=== PATIENT | male | born 2000 | race Caucasian/White ===

== ENCOUNTER 2022-11-24 09:46 | Emergency (ER) | payer MEDICAID, SELFPAY ==
[2022-11-24 09:59] VITALS: BP 126/82; PULSE 70; RESP 18; TEMP 36.1; O2SAT 100; BMI 24.4
--- NOTE | 2022-11-24 12:36 | ED.GENADULT ---
HPI - General Adult General Chief complaint: Extremity Pain/Injury, Upper Stated complaint: numb on L arm/face/ chest pain Time Seen by Provider: 11/24/22 11:34 History of Present Illness HPI narrative: c/o left arm numbness from index knuckle up to cheek for 3 days. also c/o chest pain x 1 week. Has not tried anything for pain 22-year-old man presenting to the emergency department with complaint of sensation of numbness/tingling is of waking a nerve from ?sleep? in the left index finger/base of thumb that interspace there extending up the dorsal forearm to the deltoid. Then feels like similar sense of numbness in his face. No neck pain. Does feel sense of fullness in the left anterior axillary area. There has been no injury. no rashes no blisters. He has had this sensation upon waking about 3 days ago. Usual activity. 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 Does smoke but quit a week ago. Started to have some chest pain more pleuritic pain upon deep inspiration and forced exhalation. Feeling this in the left chest. Not actually short of breath otherwise. The been no leg swelling or pain. Notes that his mom had a PE and so this is of course concern. No complaint of headache. No visual changes. No family history of neurological disorders. Related Data Home Medications Medication Instructions Recorded Confirmed citalopram 40 mg tablet (Celexa) 40 mg PO DAILY 11/24/22 11/24/22 Allergies Allergy/AdvReac Type Severity Reaction Status Date / Time cefuroxime [From Ceftin] Allergy Verified 11/24/22 10:03 Review of Systems Status of ROS: Reports: 6 or more systems reviewed and unremarkable except as noted in History and below [facility] Social History Smoking Status: Former smoker What tobacco products do you use: cigarettes Smoking quit date/years: <= 15 years ago Do you use any of these nicotine containing products: None Second hand tobacco smoke exposure: No How often do you have a drink containing alcohol: 4 or more times a week How many standard drinks containing alcohol do you have on a typical day: 3 or 4 How often do you have six or more drinks on one occasion: Less than monthly AUDIT-C Alcohol total score: 6 Non-prescribed substance use: marijuana (any form) Non-prescribed substance use details: smokes 1x every few weeks service: No Exam Narrative: Exam Narrative: Subjective altered sensation from the interspace of the left hand between the 1st and 2nd digit extending up the dorsum of the forearm up to the deltoid. Neck is supple without lymphadenopathy and no thyromegaly. He is not sore really to palpation over the trapezius or rhomboid/paraspinal musculature. Spurling's test is negative. Regular range of motion of the neck. He has full range of motion without pain at the left shoulder. There is no swelling in the axilla. No reproducible discomfort to palpation about the pectoralis musculature. Cranial nerves 2-12 intact. Lungs are clear. Breathes easily. Breath sounds throughout. Cranial nerves 2-12 intact. Dentition intact. Const: Vital Signs, click to edit/add: Vital Signs - 24 hr 11/24/22 09:59 Temperature 97.0 F L Pulse Rate [Right Pulse Oximeter] 70 Respiratory Rate 18 Blood Pressure [Ri ght Upper Arm] 126/82 Pulse Oximetry 100 Oxygen Delivery Me thod Room Air Documenting provider has reviewed patient's vital signs: yes Course Vital Signs Vital signs: Initial Vital Signs Temperature 97.0 F L 11/24/22 09:59 Temperature Source Temporal Artery Scan 11/24/22 09:59 Pulse Rate 70 11/24/22 09:59 Respiratory Rate 18 11/24/22 09:59 Blood Pressure 126/82 11/24/22 09:59 Blood Pressure Mean 96 11/24/22 09:59 Blood Pressure Position Sitting 11/24/22 09:59 Pulse Oximetry 100 11/24/22 09:59 Oxygen Delivery Method Room Air 11/24/22 09:59 Vital Signs Temperature 97.0 F L 11/24/22 09:59 Pulse Rate 70 11/24/22 09:59 Respiratory Rate 18 11/24/22 09:59 Blood Pressure 126/82 11/24/22 09:59 Pulse Oximetry 100 11/24/22 09:59 Oxygen Delivery Method Room Air 11/24/22 09:59 Temperature 97.0 F L 11/24/22 09:59 Pulse Rate 55 L 11/24/22 18:20 Respiratory Rate 12 11/24/22 18:20 Blood Pressure 123/67 11/24/22 18:20 Pulse Oximetry 100 11/24/22 18:20 Oxygen Delivery Method Room Air 11/24/22 18:20 Medical Decision Making MDM Narrative Medical decision making narrative: Appears to be demonstrating a neurapraxia. I suppose could be some CVA event. Duration though of at least 3 days. Otherwise pneumothorax pulmonary embolus remains in differential. Does not seem to be infectious etiology here appear. Possible vascular disruption. Basic chemistries and D-dimer is normal. Chest x-ray by my read is unremarkable; without pneumothorax. Did discuss with Neurology who would recommend further evaluation with concern of multiple sclerosis. MRI imaging if possible of neck and head MRI of head IMPRESSION: 1. No acute ischemia or other acute intracranial pathology. 2. No mass or pathologic intracranial enhancement. 3. Mild nonspecific FLAIR hyperintensities scattered within the supratentorial white matter. Consider sequela of migrainous headaches, chronic small vessel ischemic changes or gliosis from prior inflammatory process. The appearance of these lesions is not classic for demyelinating plaques of multiple sclerosis, although this is not excluded in the appropriate clinical setting. MRI of neck IMPRESSION: 1. No cervical cord pathology. Cervical cord signal is normal. No other intradural abnormalities. 2. Minor cervical spondylosis without high-grade spinal canal/neural foraminal stenosis. Shallow central disc osteophyte and congenital canal narrowing contributes to mild spinal canal stenosis at C4-5. Imaging is overall reassuring. Findings in brain are not conclusive for any demyelinating process. Cervical spine MRI with an osteophyte and mild spinal canal stenosis at C4-5 though not convincing for any sort of significant degree of impingement. Workup overall I would say is reassuring. See patient discharge plan Lab Data Lab results reviewed: Yes I reviewed the patient's lab results Labs: Lab Results 11/24/22 Range/Units 13:07 D-Dimer Quant (PE/DVT) < 0.27 (0.00-0.50) ug/ml Sodium 139 (135-149) mmol/L Potassium 4.1 (3.6-5.1) mmol/L Chloride 99 (96-114) mmol/L Carbon Dioxide 31 (20-32) mmol/L BUN 16 (5-24) mg/dL Creatinine 0.6 (0.5-1.5) mg/dL Estimated Creat Clear 208.37 Estimated GFR 138 ml/min Glucose 89 (60-115) mg/dL Calcium 9.4 (8.4-10.6) mg/dL C-Reactive Protein < 0.5 L (0.5-1.0) mg/dL Discharge Plan Discharge Clinical Impression: Radiculopathy Patient Disposition: Home w/ Parent or Adult Condition: Stable Additional Instructions: Best wishes in your continued efforts at smoking cessation. Stay well-hydrated. If these symptoms continue beyond another week, I would be further evaluated. Consider evaluation with [facility]. Take this disc with you to follow-up appointments. Be seen otherwise for new weakness, increasing and persistent chest pain, shortness of breath. Prescriptions: No Action citalopram [Celexa] 40 mg tablet 40 mg PO DAILY Follow Up/Referrals: FABIO GOEL DO [Primary Care Provider] - Stand Alone Forms: [facility] Info Instructions
--- NOTE | 2022-11-24 12:47 | CRLHL7_ITS ---
For Patients: As a result of the Century Cures Act, medical imaging exams and procedure reports are released immediately into your electronic medical record. You may view this report before your referring provider. If you have questions, please contact your health care provider. INDICATION: EVAL FOR PNEUMOTHORAX OR MASS TECHNIQUE: Chest 1 view. COMPARISON: None. FINDINGS: Cardiovascular and mediastinum: Heart size and vasculature are normal in caliber and appearance. Mediastinum is within normal limits. Lungs and pleural space: Lungs are clear. No sign of infiltrate or mass. No sign of pleural effusion. No pneumothorax. Bones and soft tissues: No significant findings. IMPRESSION: Unremarkable chest. Dictated by: Luis E Macario MD @ 11/24/2022 14:41:04 (Electronically Signed)
[2022-11-24 13:31] LABS: Chloride* 99 mmol/L (96-114); Potassium* 4.1 mmol/L (3.6-5.1); Sodium* 139 mmol/L (135-149)
[2022-11-24 13:34] LABS: Blood Urea Nitrogen* 16 mg/dL (5-24); Carbon Dioxide* 31 mmol/L (20-32); Creatinine* 0.6 mg/dL (0.5-1.5); Est. Creatinine Clearance* 208.37; Estimated Glomerular Filt Rate 138 ml/min
[2022-11-24 13:35] LABS: Calcium* 9.4 mg/dL (8.4-10.6); D Dimer Quantitative* < 0.27 ug/ml (0.00-0.50); Glucose* 89 mg/dL (60-115)
[2022-11-24 13:42] LABS: C Reactive Protein* < 0.5 mg/dL (0.5-1.0)
--- NOTE | 2022-11-24 14:24 | CRLHL7_ITS ---
For Patients: As a result of the Century Cures Act, medical imaging exams and procedure reports are released immediately into your electronic medical record. You may view this report before your referring provider. If you have questions, please contact your health care provider. INDICATION: Left-sided weakness. TECHNIQUE: Cervical spine MRI with contrast. MS protocol. The following sequences were obtained: Sagittal T1, T2 weighted and proton density sequences. Axial gradient and T2-weighted sequences. Axial and sagittal T1 weighted post contrast sequences. 15 cc of Dotarem gadolinium based intravenous contrast agent was used. COMPARISON: None. FINDINGS: Cervical cord signal is normal. No evidence of active or chronic demyelinating plaques. No cord atrophy. Normal cervical alignment. No fracture or aggressive marrow signal abnormality. Visualized soft tissue structures of the neck are normal in appearance. Mild congenital narrowing of the cervical spinal canal appears Findings at individual levels as follows: Craniocervical junction: Alignment is maintained. C2-C3: No substantial spinal canal or neural foraminal stenosis. C3-C4: No substantial spinal canal or neural foraminal stenosis. C4-C5: Shallow central disc osteophyte flattens the thecal sac with mild spinal canal stenosis. No neural foraminal stenosis.. C5-C6: No substantial spinal canal or neural foraminal stenosis. C6-C7: No substantial spinal canal or neural foraminal stenosis. C7-T1: No substantial spinal canal or neural foraminal stenosis. Imaged upper thoracic levels: No substantial spinal canal or neural foraminal stenosis. IMPRESSION: 1. No cervical cord pathology. Cervical cord signal is normal. No other intradural abnormalities. 2. Minor cervical spondylosis without high-grade spinal canal/neural foraminal stenosis. Shallow central disc osteophyte and congenital canal narrowing contributes to mild spinal canal stenosis at C4-5. Dictated by Ramana Cruz MD @ 11/24/2022 6:09:41 PM (Electronically Signed)
--- NOTE | 2022-11-24 14:24 | CRLHL7_ITS ---
For Patients: As a result of the Century Cures Act, medical imaging exams and procedure reports are released immediately into your electronic medical record. You may view this report before your referring provider. If you have questions, please contact your health care provider. INDICATION: Left-sided numbness. TECHNIQUE: Brain MRI with contrast. The following sequences were obtained: Sagittal T1 weighted sequence. DWI and ADC mapping sequences. Axial FLAIR and JOHNATHON T2 weighted sequences. Sagittal FLAIR sequence. T1 weighted post-contrast sequence(s). 15 cc of gadolinium based contrast agent was used. COMPARISON: None. FINDINGS: No evidence of acute ischemia. No evidence of acute or chronic intracranial blood products. No mass or pathologic intracranial enhancement. Multiple small to punctate FLAIR hyperintense foci scattered within the supratentorial white matter, relatively evenly distributed within the juxta cortical, intermediate deep and periventricular regions. No hydrocephalus or extra-axial collections. The pituitary gland, parasellar structures and optic chiasm are normal. Posterior fossa is normal. All the major intracranial vascular structures demonstrate normal flow-related signal. The orbital contents are normal. No calvarial or skull base marrow signal abnormality. No obstructive sinus disease. No extracranial soft tissue findings. IMPRESSION: 1. No acute ischemia or other acute intracranial pathology. 2. No mass or pathologic intracranial enhancement. 3. Mild nonspecific FLAIR hyperintensities scattered within the supratentorial white matter. Consider sequela of migrainous headaches, chronic small vessel ischemic changes or gliosis from prior inflammatory process. The appearance of these lesions is not classic for demyelinating plaques of multiple sclerosis, although this is not excluded in the appropriate clinical setting. Dictated by Ramana Cruz MD @ 11/24/2022 6:17:04 PM (Electronically Signed)
[2022-11-24] MEDS: 0.9 % SODIUM CHLORIDE 1000 ml 1,000 ML IV (16:30)
[2022-11-24 18:20] VITALS: BP 123/67; PULSE 55; RESP 12; O2SAT 100
== END 2022-11-24 18:48 | disposition home or self-care (01) ==
PROVIDERS: Emergency Provider Family Medicine; PCP Student in an Organized Health Care Education/Training Program
DX: M54.10 Radiculopathy, site unspecified (principal)
CPT/HCPCS: 36415; 70553; 71045; 72156; 80048; 85379; 86140; 99284; 99285; A9575; J7030